=== PATIENT | female | born 1980 | race Caucasian/White ===

== ENCOUNTER 2019-01-10 20:01 | Day surgery (SDC) | payer OTHER ==
[2019-01-10] MEDS ORDERED: TRANEXAMIC ACID 1,000 MG in NS 500 ML IV ONE (20:30)
[2019-01-10] MEDS ORDERED: TRANEXAMIC ACID 1,000 MG in NS 100 ML IV ONE (20:30)
[2019-01-10 20:37] LABS: PLATELET COUNT 213 10^3/uL (150-400)
--- NOTE | 2019-01-10 20:43 | EDPHY ---
H & P Stated Complaint: INDUCED MISCARRIAGE, WENT THROUGH SEVERAL PADS TODAY, BLEEDING WORSE Time Seen by Provider: 01/10/19 20:18 HPI/ROS: CHIEF COMPLAINT: Vaginal bleeding HISTORY OF PRESENT ILLNESS: 38-year-old female TAB 1 SAB 1 is approximately 10 weeks , took misopristol this morning and developed heavy vaginal bleeding, approximately 2 pads per hours progressively increased to 5-6 pads per hour this evening as well as feeling lightheaded. Denies: Back pain, headache, nausea, vomiting PRIMARY CARE PROVIDER: REVIEW OF SYSTEMS: 10 systems reviewed and negative with the exception of the elements mentioned in the history of present illness PAST MEDICAL & SURGICAL HISTORY: SAB 2 SOCIAL HISTORY: Nonsmoker PHYSICAL EXAM (Prior to examination, patient consented to physical exam, hands were washed and my usual and customary physical exam procedures followed) 1) GENERAL: Well-developed, well-nourished, alert and oriented. Nontoxic appears. 2) HEAD: Normocephalic, atraumatic 3) HEENT: Pupils equal, round, reactive to light bilaterally. Sclera anicteric. 4) NECK: Full range of motion, no meningeal signs. 5) LUNGS: Clear auscultation bilaterally, no wheezes, no rhonchi, no retractions. 6) HEART: Regular rate and rhythm, no murmur, no heave, no gallop. 7) ABDOMEN: No guarding, no rebound, no focal tenderness, negative McBurney's, negative Huber's, negative Rovsing's, negative peritoneal sign, 8) MUSCULOSKELETAL: Moving all extremities, no focal areas of tenderness, no obvious trauma. No peripheral edema or discoloration. 9) BACK: No CVA tenderness, no midline vertebral tenderness, no fluctuance, no step-off, no obvious trauma, no visual or palpable abnormality. 10) SKIN: No rash, no petechiae. 11) PELVIC (with female lesly Lyons at bedside): Extensive blood on the external genitalia, speculum examination reveals multiple clots, extensive bleeding with no definitive products of conception. ] DIFFERENTIAL DIAGNOSIS: In no particular include but limited to spontaneous , threatened , ectopic - Personal History LMP (Females 10-55): Current Tetanus Diphtheria and Acellular Pertussis (TDAP): Yes - Medical/Surgical History Hx Asthma: No Hx Chronic Respiratory Disease: No Hx Diabetes: No Hx Cardiac Disease: No Hx Renal Disease: No Hx Cirrhosis: No Hx Alcoholism: No Hx HIV/AIDS: No Hx Splenectomy or Spleen Trauma: No Other PMH: MISCARRIAGE - Social History Smoking Status: Never smoked Constitutional: Initial Vital Signs Temperature (C) 36.6 C 01/10/19 20:10 Heart Rate 97 01/10/19 20:10 Respiratory Rate 16 01/10/19 20:10 Blood Pressure 109/71 01/10/19 20:10 O2 Sat (%) 99 01/10/19 20:10 O2 Delivery Mode Room Air Allergies/Adverse Reactions: Penicillins Allergy (Verified 01/10/19 20:04) Home Medications: Medication Instructions Recorded Vit27&Calcium/Iron/FA 1 each PO DAILY 01/10/19 [ Rx 1 Tablet (RX)] Medical Decision Making - Diagnostics Imaging Results: Imaging Impressions Obstetrics Ultrasound 01/10/19 20:29 Impression: There is no intrauterine , free fluid, or adnexal mass. There is endometrial thickening with some associated vascularity, which may reflect retained products of conception. Findings were discussed with Qing Silveira PA-C at 21:26, on 01/10/2019, who indicated that the patient is scheduled for a D&C this evening. Images reviewed by myself ED Course/Re-evaluation: 8:25 p.m.: Patient has active vaginal bleeding, approximately 6 pads per hour with heavy vaginal bleeding on exam. I removed several clots and she continues to bleed. Discussed case with secondary supine position Dr. Patton in the ER. Will consult with OBGYN 8:30 p.m.: Consultation Dr. Ana Garay OBGYN who will consult, will administer 1g of TXA. 9:30 p.m.: Dr. Ana Garay will take the patient to the operating room for the dilatation and curettage - Data Points Laboratory Results: Laboratory Results 01/10/19 20:12 01/10/19 20:12 01/10/19 01/10/19 01/10/19 20:17 20:12 20:12 WBC RBC Hgb POC Hgb 12.6 gm/dL gm/dL (12.6-16.3) Hct POC Hct 37 % L % (38-47) MCV MCH MCHC RDW Plt Count MPV Neut % (Auto) Lymph % (Auto) [place] % (Auto) Eos % (Auto) Baso % (Auto) Nucleat RBC Rel Count Absolute Neuts (auto) Absolute Lymphs (auto) Absolute Monos (auto) Absolute Eos (auto) Absolute Basos (auto) Absolute Nucleated RBC Immature Gran % Immature Gran # POC Sodium 138 mEq/L mEq/L (135-145) Sodium 133 mEq/L L mEq/L (135-145) POC Potassium 3.5 mEq/L mEq/L (3.3-5.0) Potassium 3.8 mEq/L mEq/L (3.5-5.2) POC Chloride 100 mEq/L mEq/L (97-110) Chloride 102 mEq/L mEq/L (97-110) Carbon Dioxide 24 mEq/l mEq/l (22-31) POC Total CO2 24 mEq/L mEq/L (22-31) Anion Gap 7 mEq/L mEq/L (6-14) POC BUN 10 mg/dL mg/dL (7-23) BUN 12 mg/dL mg/dL (7-23) Creatinine 0.7 mg/dL mg/dL (0.6-1.0) POC Creatinine 0.6 mg/dL mg/dL (0.6-1.0) Estimated GFR > 60 Glucose 123 mg/dL H mg/dL (70-100) POC Glucose 127 mg/dL H mg/dL (70-100) Calcium 8.8 mg/dL mg/dL (8.5-10.4) Beta HCG, Quant 58077.00 mIU/mL H mIU/mL (0.00-4.83) Patient ABO/Rh O POSITIVE Antibody Screen NEGATIVE 01/10/19 20:12 WBC 11.75 10^3/uL H 10^3/uL (3.80-9.50) RBC 3.81 10^6/uL L 10^6/uL (4.18-5.33) Hgb 12.3 g/dL L g/dL (12.6-16.3) POC Hgb Hct 36.2 % L % (38.0-47.0) POC Hct MCV 95.0 fL fL (81.5-99.8) MCH 32.3 pg pg (27.9-34.1) MCHC 34.0 g/dL g/dL (32.4-36.7) RDW 11.9 % % (11.5-15.2) Plt Count 213 10^3/uL 10^3/uL (150-400) MPV 10.4 fL fL (8.7-11.7) Neut % (Auto) 63.8 % % (39.3-74.2) Lymph % (Auto) 28.3 % % (15.0-45.0) [place] % (Auto) 6.6 % % (4.5-13.0) Eos % (Auto) 0.6 % % (0.6-7.6) Baso % (Auto) 0.4 % % (0.3-1.7) Nucleat RBC Rel Count 0.0 % % (0.0-0.2) Absolute Neuts (auto) 7.51 10^3/uL H 10^3/uL (1.70-6.50) Absolute Lymphs (auto) 3.32 10^3/uL H 10^3/uL (1.00-3.00) Absolute Monos (auto) 0.77 10^3/uL 10^3/uL (0.30-0.80) Absolute Eos (auto) 0.07 10^3/uL 10^3/uL (0.03-0.40) Absolute Basos (auto) 0.05 10^3/uL 10^3/uL (0.02-0.10) Absolute Nucleated RBC 0.00 10^3/uL 10^3/uL (0-0.01) Immature Gran % 0.3 % % (0.0-1.1) Immature Gran # 0.03 10^3/uL 10^3/uL (0.00-0.10) POC Sodium Sodium POC Potassium Potassium POC Chloride Chloride Carbon Dioxide POC Total CO2 Anion Gap POC BUN BUN Creatinine POC Creatinine Estimated GFR Glucose POC Glucose Calcium Beta HCG, Quant Patient ABO/Rh Antibody Screen Medications Given: Discontinued Medications Doxycycline Hyclate (Doxycycline Hyclate) 100 mg PO ONCALL ONE PRN Reason: Protocol Stop: 01/10/19 22:15 Last Admin: 01/10/19 22:31 Dose: 100 mg Tranexamic Acid 1,000 mg/ (Sodium Chloride) 110 mls @ 660 mls/hr IV ONCE ONE Stop: 01/10/19 20:39 Last Admin: 01/10/19 20:47 Dose: 110 mls Lactated Ringer's (Lr) 1,000 mls @ 0 mls/hr IV ONCALL ONE PRN Reason: TKO Stop: 01/10/19 22:15 Last Admin: 01/10/19 22:23 Dose: 1,000 mls Point of Care Test Results: Chemistry 01/10/19 20:17 POC Sodium 138 mEq/L mEq/L (135-145) POC Potassium 3.5 mEq/L mEq/L (3.3-5.0) POC Chloride 100 mEq/L mEq/L (97-110) POC Total CO2 24 mEq/L mEq/L (22-31) POC BUN 10 mg/dL mg/dL (7-23) POC Creatinine 0.6 mg/dL mg/dL (0.6-1.0) POC Glucose 127 mg/dL H mg/dL (70-100) ISTAT H&H 01/10/19 20:17 POC Hgb 12.6 gm/dL gm/dL (12.6-16.3) POC Hct 37 % L % (38-47) Departure - Departure Disposition: [facility] Clinical Impression: Retained products of conception after miscarriage Condition: Fair
--- NOTE | 2019-01-10 20:51 | PDCONSULT ---
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 Took 800mcg vaginally this morning around 0900. Around 1200 - severe cramping. 1500 Bleeding started, about 2 pads per hour. Around 1830, bleeding increased and she started to feel light headed, so called her uncle ( [place] tomorrow) to bring her to the ED. Has been seeing [facility]. Had an SAB at 6 wk Sep 2018, no complications, did not have a procedure. 2 wk ago - seen at [facility] and measured 6.5 wk instead of the expected 8 weeks. Follow up US 1 week ago noted no growth and no heart beat - per pt. Preferred to manage medically, and not miss work, so waited to take the misoprostil until this morning, Saturday. Was given Rx by Dr. Suarez at [facility]. Was given 1gm Tranxemic Acid in ED, after pelvic exam by Dr. Silveira confirmed active bleeding and clots in the vagina. US: 22mm thickness of endometrium with vascularity, cannot exclude retained POC. Last ate 1900. 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[employer], -/-/- Fam Hx: noncontributory Allergy/AdvReac Type Severity Reaction Status Date / Time Penicillins Allergy Verified 01/10/19 20:04 WBC 11.75 10^3/uL (3.80-9.50) H 01/10/19 20:12 RBC 3.81 10^6/uL (4.18-5.33) L 01/10/19 20:12 Hgb 12.3 g/dL (12.6-16.3) L 01/10/19 20:12 POC Hgb 12.6 gm/dL (12.6-16.3) 01/10/19 20:17 Hct 36.2 % (38.0-47.0) L 01/10/19 20:12 POC Hct 37 % (38-47) L 01/10/19 20:17 MCV 95.0 fL (81.5-99.8) 01/10/19 20:12 MCH 32.3 pg (27.9-34.1) 01/10/19 20:12 MCHC 34.0 g/dL (32.4-36.7) 01/10/19 20:12 RDW 11.9 % (11.5-15.2) 01/10/19 20:12 Plt Count 213 10^3/uL (150-400) 01/10/19 20:12 MPV 10.4 fL (8.7-11.7) 01/10/19 20:12 Neut % (Auto) 63.8 % (39.3-74.2) 01/10/19 20:12 Lymph % (Auto) 28.3 % (15.0-45.0) 01/10/19 20:12 [place] % (Auto) 6.6 % (4.5-13.0) 01/10/19 20:12 Eos % (Auto) 0.6 % (0.6-7.6) 01/10/19 20:12 Baso % (Auto) 0.4 % (0.3-1.7) 01/10/19 20:12 Nucleat RBC Rel Count 0.0 % (0.0-0.2) 01/10/19 20:12 Absolute Neuts (auto) 7.51 10^3/uL (1.70-6.50) H 01/10/19 20:12 Absolute Lymphs (auto) 3.32 10^3/uL (1.00-3.00) H 01/10/19 20:12 Absolute Monos (auto) 0.77 10^3/uL (0.30-0.80) 01/10/19 20:12 Absolute Eos (auto) 0.07 10^3/uL (0.03-0.40) 01/10/19 20:12 Absolute Basos (auto) 0.05 10^3/uL (0.02-0.10) 01/10/19 20:12 Absolute Nucleated RBC 0.00 10^3/uL (0-0.01) 01/10/19 20:12 Immature Gran % 0.3 % (0.0-1.1) 01/10/19 20:12 Immature Gran # 0.03 10^3/uL (0.00-0.10) 01/10/19 20:12 POC Sodium 138 mEq/L (135-145) 01/10/19 20:17 Sodium 133 mEq/L (135-145) L 01/10/19 20:12 POC Potassium 3.5 mEq/L (3.3-5.0) 01/10/19 20:17 Potassium 3.8 mEq/L (3.5-5.2) 01/10/19 20:12 POC Chloride 100 mEq/L (97-110) 01/10/19 20:17 Chloride 102 mEq/L (97-110) 01/10/19 20:12 Carbon Dioxide 24 mEq/l (22-31) 01/10/19 20:12 POC Total CO2 24 mEq/L (22-31) 01/10/19 20:17 Anion Gap 7 mEq/L (6-14) 01/10/19 20:12 POC BUN 10 mg/dL (7-23) 01/10/19 20:17 BUN 12 mg/dL (7-23) 01/10/19 20:12 Creatinine 0.7 mg/dL (0.6-1.0) 01/10/19 20:12 POC Creatinine 0.6 mg/dL (0.6-1.0) 01/10/19 20:17 Estimated GFR > 60 01/10/19 20:12 Glucose 123 mg/dL (70-100) H 01/10/19 20:12 POC Glucose 127 mg/dL (70-100) H 01/10/19 20:17 Calcium 8.8 mg/dL (8.5-10.4) 01/10/19 20:12 Beta HCG, Quant 10832.00 mIU/mL (0.00-4.83) H 01/10/19 20:12 Patient ABO/Rh O POSITIVE 01/10/19 20:12 Antibody Screen NEGATIVE 01/10/19 20:12 Temp Pulse Resp BP Pulse Ox 36.6 C 82 16 115/78 97 01/10/19 20:10 01/10/19 21:29 01/10/19 21:29 01/10/19 21:29 01/10/19 21:29 gen - pleasant, NAD CV - RRR chest - CTAB abd - soft, NT, + S ext - no calf tenderness perineum/ pad - covered in blood. pelvic exam - deferred to OR. A/P: 38 with incomplete SAB after diagnosed with MAB, with retained POC and active bleeding, causing mild anemia. O positive Written informed consent obtained. Spoke with pt's , Tung, over the phone. Will proceed with suction D&C in OR. L&D notified (where D&C will be done). Ana Garay MD, FACOG, [facility]
[2019-01-10] MEDS ORDERED: DOXYCYCLINE HYCLATE 100 MG CAP/TAB PO ONE (22:14)
[2019-01-10] MEDS ORDERED: LR 1,000 ML IV ONE (22:14)
--- NOTE | 2019-01-10 22:17 | POSTOPPROG ---
Post Op Note Date of Operation: 01/10/19 Surgeon: Ana Garay Anesthesiologist: Magnus Rice Anesthesia: GET(General Endotracheal) Pre-op Diagnosis: incomplete , retained products of conception Post-op Diagnosis: same Indication: active bleeding Procedure: suction D&C Findings: uterus sounded to 10 cm, empty uterus with a thin stripe at the end Inf/Abcess present in the surg proc area at time of surgery?: No EBL: 50-100 Total fluids administered: 700 ml Complications: none Bowel Protocol: No Clean Closure Performed: No Specimen(s): products of conception
[2019-01-10] MEDS ORDERED: fentaNYL 100 MCG/2 ML INJ ONE (22:33)
[2019-01-10] MEDS ORDERED: PROPOFOL 200 MG/20 ML VIAL ONE (22:33)
[2019-01-10] MEDS ORDERED: MIDAZOLAM 2 MG/2 ML VIAL ONE (22:34)
--- NOTE | 2019-01-10 22:35 | PDANEPAE ---
ANE Past Medical History - Pulmonary History Hx Oxygen in Use at Home: No Hx Sleep Apnea: No Sleep Apnea Screening Result - Last Documented: Negative - Endocrine History Hx Diabetes: No - Chronic Pain History Chronic Pain: No ANE Review of Systems Review of Systems: ANE Patient History - Allergies Allergies/Adverse Reactions: Penicillins Allergy (Verified 01/10/19 20:04) - Home Medications Home Medications: Vit27&Calcium/Iron/FA [ Rx 1 Tablet (RX)] 1 each PO DAILY 01/10 [Last Taken 01/10/19] - NPO status NPO Since - Liquids (Date): 01/10/19 NPO Since - Liquids (Time): 19:00 NPO Since - Solids (Date): 01/10/19 NPO Since - Solids (Time): 19:00 - Smoking Hx Smoking Status: Never smoked ANE Labs/Vital Signs - Labs Result Diagrams: 01/10/19 20:12 01/10/19 20:12 - Vital Signs Blood Pressure: 101/67 Heart Rate: 68 Respiratory Rate: 16 O2 Sat (%): 98 Height: 165.1 cm Weight: 65.317 kg ANE Physical Exam - Airway Neck exam: FROM Mallampati Score: Class 1 Mouth exam: normal dental/mouth exam - Pulmonary Pulmonary: no respiratory distress - Cardiovascular Cardiovascular: regular rate and rhythym - ASA Status ASA Status: I, E ANE Anesthesia Plan Anesthesia Plan: general endotracheal anesthesia (npo 1929)
[2019-01-10] MEDS ORDERED: GLYCOPYRROLATE 0.2 MG/1 ML VIAL ONE ×2 (23:03)
[2019-01-10] MEDS ORDERED: NEOSTIGMINE METHYLSULFATE 5 MG/5 ML SYR ONE (23:03)
[2019-01-10] MEDS ORDERED: LIDOCAINE 1% 300 MG/30 ML SDV ONE (23:03)
[2019-01-10] MEDS ORDERED: fentaNYL 100 MCG/2 ML INJ IVP PRN (23:05)
[2019-01-10] MEDS ORDERED: ONDANSETRON 4 MG/2 ML VIAL IVP PRN (23:05)
[2019-01-10] MEDS ORDERED: NALOXONE HCL 0.4 MG/ML INJ IVP PRN (23:05)
[2019-01-10] MEDS ORDERED: HYDROCODONE/APAP 5/325 TAB PO PRN (23:05)
[2019-01-10] MEDS ORDERED: ALBUTEROL 3 ML DEYVIAL IH PRN (23:05)
--- NOTE | 2019-01-10 23:44 | POSTANESTH ---
Post Anesthetic Evaluation Cardiovascular Status: Similar to Pre-Op Cond Respiratory Status: Similar to Pre-op Cond. Level of Consciousness/Mental Status: Mildly Sleepy, Arousable Pain Control: Adequate, Prn Tx Ordered Nausea/Vomiting Control: Adequate, Prn Tx Ordered Complications Possibly Related to Anesthesia: None Noted
[2019-01-11] MEDS ORDERED: IBUPROFEN 600 MG TAB PO ONE (01:15)
--- NOTE | 2019-01-11 01:44 | GOP ---
[f rep st] OPERATIVE REPORT DATE OF OPERATION: 01/10/2019 SURGEON: Ana Garay MD ANESTHESIA: General endotracheal. ANESTHESIOLOGIST: Magnus Rice MD. PREOPERATIVE DIAGNOSIS: 1. Incomplete missed . 2. Retained products of conception. 3. Active bleeding. POSTOPERATIVE DIAGNOSIS: 1. Incomplete missed . 2. Retained products of conception. 3. Active bleeding. PROCEDURE PERFORMED: Suction dilatation and curettage. FINDINGS: The uterus sounded to 10 cm at the beginning of the procedure. Transvaginal ultrasound done at the end of the procedure revealed a normal- appearing uterus with a thin endometrial stripe. ESTIMATED BLOOD LOSS: 100 mL. INDICATIONS: A 38-year-old, 2, para 0-0-1-0, with a missed diagnosed in the office approximately 2 weeks ago. Expectant management occurred and then the patient decided to proceed with medical management. She took a dose of misoprostol this morning and started having cramping and bleeding. The bleeding began to get very heavy, soaking more than 2 pads an hour, and so she presented to the emergency room. Ultrasound done in the emergency room showed there was still 2.2 cm of heterogeneous material with vascularity present in the uterus. DESCRIPTION OF PROCEDURE: Written informed consent was obtained from the patient when she was evaluated in the emergency room. She was taken up to the Labor and Delivery preoperative area where she met with Dr. Glez. She was then taken back to the operating room, placed in the dorsal supine position. A WHO time-out was performed. When general anesthesia was deemed adequate, she was placed in the dorsal lithotomy position using the blue padded stirrups. Examination under anesthesia revealed an approximately 10 week-size anteverted uterus. She had been given 100 mg of doxycycline in the preoperative area. Her vagina and perineum were sterilely prepared and draped in the standard fashion. A speculum was inserted into the vagina. A paracervical block was placed with 10 mL of 1% lidocaine. A tenaculum was placed on the anterior lip of the cervix. The uterus sounded to 10 cm. The cervix was dilated to 8 mm using the Hegar dilators. The size 8 suction curette was inserted and suction curettage was performed. A significant amount of products of conception was removed. Uterine cry was not global, so a gentle sharp curettage was performed. A 9 mm suction curette was then used to perform the last pass. Uterine cry was noted globally. The instruments were removed from the vagina. A transvaginal ultrasound was performed and this revealed an empty uterus with a thin endometrial stripe. Sponge, lap, and needle counts were correct x2. The patient was extubated in the operating room and taken to the recovery room in stable condition. She will be discharged to home directly from the recovery room. She is to follow up at [facility] in 2 to 3 weeks. IV FLUIDS: Total administered 700 mL. URINE OUTPUT: Unmeasured, as she voided immediately prior to the procedure. No catheterization was done. COMPLICATIONS: None. /[id number]/MODL MTDD
[2019-01-11 02:50] VITALS: BP 101/67
== END 2019-01-11 03:05 | disposition home or self-care (01) ==
LOC: UNDOADMOB 21:34 → FSGY 21:54 → FOBOP 01-11 03:05
PROVIDERS: ATTEND Hospitalist
PROC: 10D17ZZ Extraction of Products of Conception, Retained, Via Natural or Artificial Opening (ICD-10-PCS; principal; 2019-01-10)
DX: O02.1 Missed abortion (principal); D62 Acute posthemorrhagic anemia
CPT/HCPCS: 82435-PO; 82565-PO; 82947-PO; 84132-PO; 84295-PO; 84520-PO; 85014-ER; 96374; J2250; J2704; J2710; J3010; J7613